=== PATIENT | male | born 1935 | race Caucasian/White ===

== ENCOUNTER 2020-02-10 10:42 | Inpatient (IN) | payer OTHER, MEDICAID ==
[~2020-02-10] VITALS: Ht 165.1 cm; Wt 63.5 kg
[2020-02-10 10:42] VITALS: BP_SYST 148
[2020-02-10 12:00] VITALS: BP_SYST 136
[2020-02-10 12:10] VITALS: BP_SYST 136
[2020-02-10 12:17] VITALS: BP_SYST 136
[2020-02-10 12:23] LABS: BASOPHILS % (AUTO) 0.4 % (0.0-2.0); EOSINOPHILS # (AUTO) 0.1 K/uL (0.0-0.4); EOSINOPHILS % (AUTO) 1.1 % (0.0-4.0); HEMATOCRIT 40.1 % (36-54); HEMOGLOBIN 14.1 g/dL (14.0-18.0); LYMPHOCYTES # (AUTO) 1.2 K/uL (1.0-5.5); LYMPHOCYTES % (AUTO) 11.5 % (20.5-51.5); MEAN CORPUSCULAR HEMOGLOBIN 32 pg (27-31); MEAN CORPUSCULAR HGB CONC 35 % (32-36); MEAN CORPUSCULAR VOLUME 90 fL (79.0-98.0); MONOCYTES # (AUTO) 0.9 K/uL (0.0-1.0); MONOCYTES % (AUTO) 9.2 % (1.7-9.3); NEUTROPHILS # (AUTO) 7.8 K/uL (1.8-7.7); NEUTROPHILS % (AUTO) 77.8 % (40.0-70.0); PLATELET COUNT (AUTO) 281 K/uL (130-430); RED BLOOD CELL COUNT(AUTO) 4.44 MIL/uL (4.2-6.2); RED CELL DISTRIBUTION WIDTH 13.6 % (9.0-15.0); WHITE BLOOD COUNT (AUTO) 10.1 K/uL (4.8-10.8)
[2020-02-10 12:41] LABS: ALANINE AMINOTRANSFERASE 21 U/L (12-78); ALBUMIN 3.4 g/dL (3.4-4.8); ANION GAP 11 (5-15); ASPARTATE AMINOTRANSFERASE 15 U/L (10-37); CALCIUM 8.9 mg/dL (8.4-11.0); CHLORIDE 100 mmol/L (98-107); CREATININE 0.59 mg/dL (0.55-1.30); GLUCOSE 92 mg/dL (70-99); POTASSIUM 3.7 mmol/L (3.5-5.1); SODIUM SERUM 133 mmol/L (136-145); TOTAL BILIRUBIN 0.7 mg/dL (0.0-1.0); UREA NITROGEN, BLOOD 10 mg/dL (8-21)
[2020-02-10] MEDS ORDERED: LOSA100T3 PO (16:01)
[2020-02-10] MEDS ORDERED: NETA2.5D EACH EYE (16:01)
[2020-02-10] MEDS ORDERED: PSYL3.4P5 PO (16:01)
[2020-02-10] MEDS ORDERED: COR12.5 PO (16:01)
[2020-02-10] MEDS ORDERED: BRIN8DRO OP (16:01)
[2020-02-10] MEDS ORDERED: TIMO5DRO16 EACH EYE (16:01)
[2020-02-10] MEDS ORDERED: LATA5DRO EACH EYE (16:01)
[2020-02-10] MEDS ORDERED: CEL20 PO (16:01)
[2020-02-10] MEDS ORDERED: AMLO5TAB4 PO (16:01)
[2020-02-10] MEDS ORDERED: LOP600 PO (16:01)
[2020-02-10] MEDS ORDERED: LIP20 PO (16:01)
[2020-02-10 16:24] VITALS: BP_SYST 144
[2020-02-10 20:00] VITALS: BP_SYST 152
[2020-02-10] MEDS ORDERED: PSYLLIUM HUSK 1 PKT PACKET PO SCH (20:30)
[2020-02-10] MEDS: TIMOLOL MALEATE 0.25% OPHTHALMIC DROPS 5 ML EACH EYE SCH (21:00)
[2020-02-10] MEDS: ATORVASTATIN 20 MG TABLET PO SCH (21:06)
[2020-02-10] MEDS: amLODIPine BESYLATE 5 MG TABLET PO SCH (21:07)
[2020-02-10] MEDS: GEMFIBROZIL 600 MG TABLET (LOPID) PO SCH (21:07)
[2020-02-10] MEDS: CARVEDILOL 12.5 MG TABLET (COREG) PO SCH (21:07)
[2020-02-11 04:29] VITALS: BP_SYST 111
[2020-02-11] MEDS: CITALOPRAM HYDROBROMIDE 20 MG TABLET PO SCH (09:49)
[2020-02-11] MEDS: CARVEDILOL 12.5 MG TABLET (COREG) PO SCH ×2 (09:50→22:15)
[2020-02-11] MEDS: GEMFIBROZIL 600 MG TABLET (LOPID) PO SCH ×2 (09:52→22:15)
[2020-02-11] MEDS: LOSARTAN POTASSIUM 50 MG TABLET (COZAAR) PO SCH (09:52)
[2020-02-11] MEDS: amLODIPine BESYLATE 5 MG TABLET PO SCH ×2 (09:53→22:15)
[2020-02-11 11:39] VITALS: BP_SYST 109
[2020-02-11 15:59] VITALS: BP_SYST 136
[2020-02-11 19:00] VITALS: BP_SYST 112
[2020-02-11 20:00] VITALS: BP_SYST 112
[2020-02-11] MEDS: TIMOLOL MALEATE 0.25% OPHTHALMIC DROPS 5 ML EACH EYE SCH (21:00)
[2020-02-11] MEDS: ATORVASTATIN 20 MG TABLET PO SCH (22:15)
[2020-02-11 23:55] VITALS: BP_SYST 117
[2020-02-12 08:36] VITALS: BP_SYST 139
[2020-02-12] MEDS: CITALOPRAM HYDROBROMIDE 20 MG TABLET PO SCH (09:34)
[2020-02-12] MEDS: amLODIPine BESYLATE 5 MG TABLET PO SCH ×2 (09:35→20:26)
[2020-02-12] MEDS: LOSARTAN POTASSIUM 50 MG TABLET (COZAAR) PO SCH (09:35)
[2020-02-12] MEDS: GEMFIBROZIL 600 MG TABLET (LOPID) PO SCH ×2 (09:35→20:27)
[2020-02-12] MEDS: CARVEDILOL 12.5 MG TABLET (COREG) PO SCH ×2 (09:35→20:26)
[2020-02-12 11:32] VITALS: BP_SYST 154
[2020-02-12 15:35] VITALS: BP_SYST 128
[2020-02-12] MEDS ORDERED: IOHEXOL 100 ML IV ONE (15:54)
[2020-02-12 20:00] VITALS: BP_SYST 144
[2020-02-12] MEDS: ATORVASTATIN 20 MG TABLET PO SCH (20:26)
[2020-02-12] MEDS: TIMOLOL MALEATE 0.25% OPHTHALMIC DROPS 5 ML EACH EYE SCH (20:26)
[2020-02-13 00:06] VITALS: BP_SYST 130
[2020-02-13 08:00] VITALS: BP_SYST 146
[2020-02-13] MEDS: CITALOPRAM HYDROBROMIDE 20 MG TABLET PO SCH (08:51)
[2020-02-13] MEDS: CARVEDILOL 12.5 MG TABLET (COREG) PO SCH (08:51)
[2020-02-13] MEDS: LOSARTAN POTASSIUM 50 MG TABLET (COZAAR) PO SCH (08:51)
[2020-02-13] MEDS: amLODIPine BESYLATE 5 MG TABLET PO SCH (08:52)
[2020-02-13] MEDS: GEMFIBROZIL 600 MG TABLET (LOPID) PO SCH (08:52)
[2020-02-13 12:18] VITALS: BP_SYST 120
[2020-02-13] MEDS ORDERED: LEVO250T58 PO (13:10)
[2020-02-13] MEDS ORDERED: LEVOFLOXACIN 250 MG TABLET PO ONE (13:15)
[2020-02-13 16:17] VITALS: BP_SYST 144
[2020-02-13 16:31] VITALS: BP_SYST 132
[2020-02-14] MEDS ORDERED: LEVOFLOXACIN 250 MG TABLET PO SCH (10:00)
== END 2020-02-13 19:27 | disposition home or self-care (01) | DRG 315 ==
LOC: SED 10:42 → SMU 11:23
PROVIDERS: ADMIT Internal Medicine Infectious Disease; ATTEND Internal Medicine Infectious Disease
DX: D18.09 Hemangioma of other sites (principal); E87.1 Hypo-osmolality and hyponatremia; R16.0 Hepatomegaly, not elsewhere classified; K80.20 Calculus of gallbladder without cholecystitis without obstruction; I10 Essential (primary) hypertension; E78.5 Hyperlipidemia, unspecified; N35.919 Unspecified urethral stricture, male, unspecified site; N40.0 Benign prostatic hyperplasia without lower urinary tract symptoms
CPT/HCPCS: 36415; 74150-TC; 76700-TC; 80053; 82105; 85025; 99285; Q9967